=== PATIENT | female | born 1960 | race Caucasian/White ===

== ENCOUNTER → 2018-09-04 10:23 | Outpatient (CLI) | payer BC, SELFPAY ==
--- NOTE | 2018-09-04 10:28 | XR_ITS ---
XR finger RT min 2V CLINICAL INDICATION: Pain ITS.REASON: ARTHROPATHY OF HAND ORDERING PHYSICIAN: Harshil Lindquist MD PATIENT AGE: 58 years Comparison: None FINDINGS: There is a small calcific density along the dorsal aspect of the DIP joint which could represent an old avulsion injury. No acute fracture or dislocation. No lytic or blastic change. No significant arthritic change. IMPRESSION: Suspect old avulsion fracture at the dorsal aspect of the DIP of the second digit otherwise negative
--- NOTE | 2018-09-04 10:28 | XR_ITS ---
XR hip RT 2-3V w/pelvis HISTORY: ITS.REASON: RT HIP PAIN ORDERING PHYSICIAN: Harshil Lindquist MD PATIENT AGE: 58 years COMPARISON: None FINDINGS: There are mild osteoarthritic changes of the right hip. No fracture or dislocation. No lytic or blastic age. IMPRESSION: Mild osteoarthritis of the right hip
== END ==
PROVIDERS: PCP Family Medicine; Visit Provider Family Medicine
DX: M25.551 Pain in right hip (principal); M19.041 Primary osteoarthritis, right hand
CPT/HCPCS: 73140; 73502

== ENCOUNTER → 2018-09-08 09:55 | Outpatient (CLI) | payer BC, SELFPAY ==
--- NOTE | 2018-09-08 10:20 | CA_ITS ---
PROCEDURE: 2-D M-mode and color Doppler study INDICATIONS FOR THE TEST: Chest pain COPD Heart Murmur Tobacco Smoking Palpitations Fatigue Syncope Edema HypertensionXDiabetes Mellitus Rheumatic Fever SOB ABRAHAM Obesity Hyperlipidemia Family History HD Additional History MV REPAIR,RING,CM,ASD REPAIR PATIENT INFORMATION HEIGHT: 70 WEIGHT:156 GENDER: Female B/P:117/72 2-D/M-MODE INTERPRETATION: 2-D MEASUREMENTS OBSERVED VALUES IN CMS Right Ventricular Dimension (RVDd) 2.8 Interventricular Septum (Thickness)(IVsd) .7 Left Ventricular Internal Dimensions(LVIDd) 4.9 Left Ventricular Posterior Wall (Thickness)(LVPWd) .8 Aortic Root 3.3 Aortic Cusp Separation 2.1 Left Atrial Dimensions (LAD) 2.9 2D 1. Left atrium is normal size, left ventricle is normal size, there is no concentric left ventricular hypertrophy, visually estimated ejection fraction approximately 50% with no regional wall motion abnormality. 2. The right atrium and right ventricle are normal size and contractility. 3. The aortic valve is minimally thickened and fibrosed. 4. 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 5. The tricuspid valve is grossly normal. 6. The pulmonic valve is poorly visualized. 7. No significant pericardial effusion noted. DOPPLER INTERROGATION: Doppler interrogation of the aortic, mitral and tricuspid valvular presence of mild tricuspid regurgitation, tricuspid regurgitation jet velocity is inadequate for calculation of the right ventricular systolic pressure, diastolic parameters are within normal range. CONCLUSION: 1. Normal left ventricular size, preserved left ventricular systolic function, visually estimated ejection fraction of 50% with no regional wall motion abnormality, diastolic parameters are within normal range. 2. Normal functioning mitral valve ring without significant mitral inflow obstruction or mitral regurgitation 3. No significant pericardial effusion noted.
== END ==
PROVIDERS: PCP Family Medicine; Visit Provider Family Medicine
DX: Z98.890 Other specified postprocedural states (principal)
CPT/HCPCS: 93306

== ENCOUNTER → 2018-10-31 07:46 | Outpatient (CLI) | payer BC, SELFPAY ==
--- NOTE | 2018-10-31 07:48 | US_ITS ---
US transvaginal HISTORY: Pelvic pain, postmenopausal ITS.REASON: US T/V- Pelvic, Abdominal lower back pain ORDERING PHYSICIAN: Lucio Shelley MD PATIENT AGE: 58 years Comparison: None FINDINGS: UTERUS: The uterus measures 6 x 3 x 4 cm. Combined endometrial thickness is 3 mm. The uterus is anteverted. No uterine mass. No endometrial mass or thickening. The ovaries are difficult to visualize. Left ovary is 2 x 1.4 cm. The right ovary is 2.9 x 1.2 cm. No adnexal mass. No cul-de-sac fluid. IMPRESSION: Unremarkable pelvic ultrasound
== END ==
PROVIDERS: PCP Family Medicine; Visit Provider Nurse Practitioner Obstetrics & Gynecology
DX: M54.5 Low back pain (principal); R10.2 Pelvic and perineal pain; R10.9 Unspecified abdominal pain
CPT/HCPCS: 76830

== ENCOUNTER → 2018-12-08 10:42 | Outpatient (CLI) | payer BC, SELFPAY ==
--- NOTE | 2018-12-08 10:46 | XR_ITS ---
XR DEXA axial skeleton HISTORY: ITS.REASON: OSTEOPENIA ORDERING PHYSICIAN: Harshil Lindquist MD PATIENT AGE: 58 years COMPARISON: None FINDINGS: The BMD measured at the Left femoral neck is 1.032 g/cm squared with a T score of 0. This is considered Normal according to the World Health Organization criteria. Fracture risk is Low. L1 L4 density has a T score 2.3 IMPRESSION: Normal bone density. Low fracture risk. Recommend follow-up exam in November 2020
== END ==
PROVIDERS: PCP Family Medicine; Visit Provider Family Medicine
DX: M85.89 Other specified disorders of bone density and structure, multiple sites (principal)
CPT/HCPCS: 77080

== ENCOUNTER → 2021-06-14 16:49 | Outpatient (CLI) | payer BC, SELFPAY ==
--- NOTE | 2021-06-14 16:53 | MM_ITS ---
PROCEDURE INFORMATION: Exam: Screening 3D Mammography Exam date and time: 06/14/2021 4:53 PM Age: 60 years old Clinical indication: screening mammogram TECHNIQUE: Imaging protocol: Screening tomosynthesis and 2D mammography including computer-aided detection (CAD) when performed. COMPARISON: [facility] DIGITAL SCREEN BILATERAL 04/15/2019 3:50 PM FINDINGS: MAMMOGRAPHY: Breast composition: There are scattered areas of fibroglandular density. Mass: None. Architectural distortion: No new or suspicious architectural distortion. Calcifications: No new or suspicious calcifications are present Asymmetric density: No new or suspicious asymmetric density is present Skin thickening: None. Axillary adenopathy: None. IMPRESSION: No mammographic evidence of malignancy. Recommend annual screening mammography unless otherwise clinically indicated. ASSESSMENT: BI-RADS category 1: Negative
== END ==
PROVIDERS: PCP Family Medicine; Visit Provider Family Medicine
DX: Z12.31 Encounter for screening mammogram for malignant neoplasm of breast (principal)
CPT/HCPCS: 77063; 77067

== ENCOUNTER → 2022-08-17 15:22 | Outpatient (CLI) | payer BC, SELFPAY ==
--- NOTE | 2022-08-17 15:22 | MM_ITS ---
PROCEDURE INFORMATION: Exam: MG Bilateral Screening 3D Mammography Exam date and time: 08/17/2022 3:23 PM Age: 61 years old Clinical indication: Screening mammogram TECHNIQUE: Imaging protocol: Bilateral Screening tomosynthesis and 2D mammography including computer-aided detection (CAD) when performed. COMPARISON: 1. MG MM DIG SCREENING MAMM BI W/CAD 06/14/2021 4:51 PM 2. MG [facility] CHEY DIGITAL SCREEN BILATERAL 04/15/2019 3:50 PM 3. MG [facility] DIGITAL MAMM-SCREEN BILATERAL 06/10/2012 4:23 PM 4. MG [facility] DIGITAL MAMM-SCREEN BILATERAL 03/29/2011 3:42 PM FINDINGS: MAMMOGRAPHY: Breast composition: There are scattered areas of fibroglandular density. Mass: None. Architectural distortion: No new or suspicious architectural distortion. Calcifications: Stable benign-appearing calcifications are present. No new or suspicious cluster of microcalcifications have developed. Asymmetric density: No new or suspicious asymmetric density is present Skin thickening: None. Axillary adenopathy: None. IMPRESSION: No mammographic evidence of malignancy. Recommend annual screening mammography unless otherwise clinically indicated. ASSESSMENT: BI-RADS category 2: Benign
== END ==
PROVIDERS: PCP Family Medicine; Visit Provider Nurse Practitioner Obstetrics & Gynecology
DX: Z12.31 Encounter for screening mammogram for malignant neoplasm of breast (principal)
CPT/HCPCS: 77063; 77067

== ENCOUNTER → 2022-11-16 07:20 | Outpatient (CLI) | payer BC, SELFPAY ==
[2022-11-16 09:10] LABS: Chloride 105 mmol/L (98-107); Potassium 4.4 mmoL/L (3.5-5.1); Sodium 141 mmol/L (136-145)
[2022-11-16 09:12] LABS: Blood Urea Nitrogen 21 mg/dl (7-17); Estimated Glomerular Filt Rate 56 ml/min (>60); GFR (African American) 68 ML/MIN (>60)
[2022-11-16 09:13] LABS: Alanine Aminotransferase 14 U/L (12-78); Albumin Level 4.2 g/dl (3.5-5.0); Albumin/Globulin Ratio 1.4 (1.1-1.8); Alkaline Phosphatase 80 U/L (38-126); Anion Gap 9.4 mEq/L (5-15); Aspartate Amino Transferase 28 U/L (14-36); Bilirubin,Total 0.2 mg/dl (0.2-1.3); Calcium 8.7 mg/dl (8.4-10.2); Carbon Dioxide 31 mmol/L (22.0-30.0); Cholesterol 197 mg/dl (140-200); Globulin 2.9 g/dL (1.3-3.2); Glucose 100 mg/dl (74-100); Total Protein,Serum 7.1 g/dl (6.3-8.2); Triglycerides 74 mg/dl (30-150); VLDL Cholesterol 15 mg/dL (0-40)
[2022-11-16 09:24] LABS: Direct LDL Cholesterol 107.17 mg/dL (100-129)
[2022-11-16 12:21] LABS: Chol/HDL Ratio 4.2 (1-3.5); HDL Cholesterol 47 mg/dl (40-60)
== END ==
PROVIDERS: PCP Family Medicine; Visit Provider Family Medicine
DX: Z79.899 Other long term (current) drug therapy (principal)
CPT/HCPCS: 36415; 80053; 80061

== ENCOUNTER → 2023-02-08 09:00 | Outpatient (CLI) | payer BC, SELFPAY ==
--- NOTE | 2023-02-08 09:08 | XR_ITS ---
FINAL REPORT TECHNIQUE: Bone mineral density was calculated of the lumbar spine and hip. CLINICAL HISTORY: . osteopenia FINDINGS: DEXA BONE DENSITY AXIAL SKELETON Using L1-4, the bone mineral density of the spine is 1.265 g/cm2, corresponding to T-score of 2.0 with a Z-score 3.6. Using the left hip, the bone mineral density of the total hip is 0.879 g/cm2, corresponding to a T-score of -0.5 with a Z-score of 0.6. Using the right hip, the bone mineral density of the total hip is 0.960 g/cm2, corresponding to a T-score of 0.2 with a Z-score of 1.2. NOTE: T-score: Standard deviation compared with peak bone mass of young adult mean. *Following the recommendations of the International Society of Bone densitometry, classification of hip BMD is based on the lower of two T-scores; total hip or femoral neck. IMPRESSION: Normal bone mineral density of the lumbar spine and hips. Reviewed, Interpreted and Dictated by Simi Evans MD Transcribed by Lorenza Kou Authenticated and [facility]
== END ==
PROVIDERS: PCP Family Medicine; Visit Provider Family Medicine
DX: Z13.820 Encounter for screening for osteoporosis (principal); Z78.0 Asymptomatic menopausal state
CPT/HCPCS: 77080

== ENCOUNTER → 2023-09-06 15:11 | Outpatient (CLI) | payer BC, SELFPAY ==
--- NOTE | 2023-09-06 15:15 | MM_ITS ---
PROCEDURE INFORMATION: Exam: MG Bilateral Screening 3D Mammography Exam date and time: 09/06/2023 3:07 PM Age: 63 years old Clinical indication: Screening examination; No personal or family history of breast cancer TECHNIQUE: Imaging protocol: Bilateral Screening tomosynthesis and 2D mammography including computer-aided detection (CAD) when performed. COMPARISON: 1. MG MM DIG SCREENING MAMM BI W/CAD 08/17/2022 3:23 PM 2. MG MM DIG SCREENING MAMM BI W/CAD 06/14/2021 4:51 PM FINDINGS: MAMMOGRAPHY: Breast composition: There are scattered areas of fibroglandular density. Mass: None. Architectural distortion: None. Calcifications: No suspicious calcifications. Asymmetric density: None. Skin thickening: None. Axillary adenopathy: None. IMPRESSION: No mammographic evidence of malignancy. Annual screening is recommended unless otherwise clinically indicated. ASSESSMENT: BI-RADS Category 1: Negative
== END ==
PROVIDERS: PCP Family Medicine; Visit Provider Family Medicine
DX: Z12.31 Encounter for screening mammogram for malignant neoplasm of breast (principal)
CPT/HCPCS: 77063; 77067

== ENCOUNTER 2024-09-18 14:14 | Outpatient (CLI) | payer BC, SELFPAY ==
--- NOTE | 2024-09-18 14:20 | MM_ITS ---
PROCEDURE INFORMATION: Exam: MG Bilateral Screening 3D Mammography Exam date and time: 09/18/2024 2:07 PM Age: 64 years old Clinical indication: Screening. No family history of breast cancer. TECHNIQUE: Imaging protocol: Bilateral Screening tomosynthesis and 2D mammography including computer-aided detection (CAD) when performed. COMPARISON: MG MM DIG SCREENING MAMM BI W/CAD 08/17/2022 3:23 PM FINDINGS: MAMMOGRAPHY: Breast composition: There are scattered areas of fibroglandular density. Mass: None. Architectural distortion: None. Calcifications: No suspicious calcifications. Asymmetric density: None. Skin thickening: None. Axillary adenopathy: None. IMPRESSION: No mammographic evidence of malignancy. Annual screening is recommended unless otherwise clinically indicated. ASSESSMENT: BI-RADS Category 1: Negative.
== END 2024-09-18 23:59 | disposition home or self-care (01) ==
LOC: RAD 14:15
PROVIDERS: PCP Family Medicine; Visit Provider Family Medicine
DX: C50.919 Malignant neoplasm of unspecified site of unspecified female breast (principal)
CPT/HCPCS: 77063; 77067

== ENCOUNTER 2025-02-22 08:28 | Emergency (ER) | payer BC, SELFPAY ==
--- NOTE | 2025-02-22 08:41 | XR_ITS ---
FINAL REPORT CLINICAL HISTORY: fall onto R knee, large laceration FINDINGS: RIGHT KNEE Three views demonstrate no acute fracture or dislocation. The joint spaces appear normal. No acute soft tissue abnormality is seen. IMPRESSION: No acute process. Reviewed, Interpreted and Dictated by Valdez Maguire MD Transcribed by Blossom Millan Authenticated and [facility]
--- NOTE | 2025-02-22 08:42 | HMH.EDGENADL ---
Discharge Plan Disposition Patient Disposition: Home, Self-Care Condition: Good Prescriptions Prescriptions: New cephalexin 500 mg capsule 500 mg PO Q8H 7 Days Qty: 21 0RF No Action folic acid 400 mcg tablet 400 mcg PO QDAY aspirin [Adult Low Dose Aspirin] 81 mg tablet,delayed release (DR/EC) 81 mg PO QDAY cholecalciferol (vitamin D3) 3,000 unit tablet 3,000 unit PO ONCE Adult 50 Plus Probiotic 4 billion cell capsule 4,000 mmu cells PO DAILY Rx Instructions: administer with a meal vitamin B complex [Vitamins B Complex] Capsule 1 cap PO DAILY calcium carbonate 500 mg calcium (1,250 mg) tablet 500 mg PO DAILY metoprolol tartrate 25 mg tablet See Rx Instructions .ROUTE .COMPLEX Qty: 60 0RF Dose Instruction: Take 1 tablet by mouth twice daily Rx Instructions: Take 1 tablet by mouth twice daily sertraline 100 mg tablet See Rx Instructions .ROUTE .COMPLEX Qty: 90 0RF Dose Instruction: Take 1 tablet by mouth once daily Rx Instructions: Take 1 tablet by mouth once daily Referrals Follow up/Referrals: Harshil Lindquist MD [Primary Care Provider] - See instructions Activity Restrictions/Add. Instructions Additional Instructions/Restrictions: You were evaluated in the emergency department today. Please keep your wound clean and dry. It is okay if it gets wet in the shower, just do not submerge under any water such as in the bathtub. Keep a clean dressing applied to your wound to help protect it and prevent infection. Apply antibiotic ointment that was provided to you twice daily. supervisor [employer] your prescription for antibiotics and take the full course as prescribed to help prevent infection. You had 10 nonabsorbable sutures placed which will need to be removed in approximately 10 to 14 days. Follow-up closely with either primary care, urgent treatment, or here in the emergency department for wound recheck. Take Tylenol and ibuprofen as needed for pain. Return to the emergency department right away for new or worsening symptoms or should you become concerned for wound infection. Clinical Impressions Clinical Impression: Laceration of knee, right, complicated Stand Alone Forms Stand Alone Forms: Work/School Release Instructions Patient Instructions: DI for Laceration Repair, DI for Knee Pain Print Language Print Language: British Discharge ED Provider: Marisa Pedroza General Adult HPI General Chief complaint: Wound/Laceration Stated complaint: AO-Fall 529, Laceration R knee Time Seen by Provider: 02/22/25 08:32 History of Present Illness HPI narrative: This patient is a 64-year-old female who denies significant past medical history presenting to the emergency department for evaluation with concern for right knee injury. Patient states that she tripped and fell in her driveway, which is uneven, landing on her right knee and her right wrist. Her right wrist is fine with the exception of a superficial abrasion, but she has a large laceration to her right knee. She did not hit her head or lose consciousness, no other injuries or complaints noted. She does not take blood thinners or aspirin. She went to [facility] to get her wound repaired, but they told her it was too deep and sent her to the ED for evaluation. She is unsure when her last tetanus shot was. Related Data Home Medications ?Medication ?Instructions ?Recorded ?Confirmed folic acid 400 mcg tablet 400 mcg PO QDAY 11/13/17 02/22/25 aspirin 81 mg tablet,delayed 81 mg PO QDAY 11/14/17 02/22/25 release (Adult Low Dose Aspirin) cholecalciferol (vitamin D3) 75 3,000 unit PO ONCE 05/22/18 02/22/25 mcg (3,000 unit) tablet vitamin B complex (Vitamins B 1 cap PO DAILY 09/29/19 02/22/25 Complex capsule) lactobacillus combination no.9 4 4,000 mmu cells PO DAILY 01/10/22 02/22/25 billion cell capsule (Adult 50 Plus Probiotic) calcium carbonate 500 mg PO DAILY 01/14/23 02/22/25 Previous Rx's ?Medication ?Instructions ?Recorded metoprolol tartrate 25 mg tablet See Rx Instructions .Route 07/22/23 .COMPLEX #60 tabs sertraline 100 mg tablet See Rx Instructions .Route 10/14/23 .COMPLEX #90 tabs cephalexin 500 mg capsule 500 mg PO Q8H 7 days #21 caps 02/22/25 Allergies Allergy/AdvReac Type Severity Reaction Status Date / Time No Known Allergies Allergy Verified 02/22/25 08:[address] [facility] Disclaimer: The information contained in this section may have been updated after the patient was seen, as this information can be updated by other users. Medical History Marital conflict Anxiety about health Surgical History Hx of tubal ligation History of open heart surgery Family History Other Cancer Social History Smoking Status: Never smoker alcohol intake: never substance use type: denies use current occupational status: employed Travel in the last 8 weeks: None number of children: 4 Have you lived/traveled outside US in past 30 days?: No Contact w/someone who lives/traveled outside US past 30 days?: No Exposure to someone with infectious disease in past 14 days?: No Do you have a fever (greater than 100.4 F or 38 C)?: No Have you tested positive for COVID-19: No Exposed to someone with COVID-19 in past 14 days?: No Do you have a sore throat?: No Do you have a cough?: No Do you have any weakness?: No Do you have any diarrhea?: No Are you experiencing any unusual bleeding?: No Do you have any muscle aches/pain?: No Do you have any abdominal pain?: No Are you experiencing loss of taste or smell?: No Other Medical History Have you received the Flu Vaccine for this season: No Have you received the Pneumonia Vaccine: No ROS Obtained: Yes All systems reviewed & no additional complaints except as documented Physical Exam General General appearance: alert and in no apparent distress Head Head exam: atraumatic and normocephalic Eye Eye exam: Present normal appearance, PERRL and EOMI ENT ENT exam: Present normal exam, normal oropharynx, mucous membranes moist and normal external ear exam Neck Neck exam: Present normal inspection, full ROM and trachea midline; Absent tenderness Chest Chest inspection: Present normal inspection and symmetric chest wall rise; Absent tenderness Respiratory Respiratory exam: Present normal lung sounds bilaterally; Absent respiratory distress, wheezes, stridor or accessory muscle use Cardiovascular Cardiovascular exam: Present regular rate and normal rhythm Abdominal Exam Abdominal exam: Present soft; Absent distention, tenderness or guarding Extremities Exam Extremities exam: Present full ROM, normal capillary refill and other (Superficial abrasion to the ulnar aspect of the right wrist. Compartment soft. Neurovascularly intact distally. Large flap laceration to the right knee without significant bony tenderness to palpation.); Absent tenderness or edema Expanded Lower Extremity Exam Right: Leg image: 1. Large stellate flap laceration without deep extension into the joint on further assessment. Patellar tendon intact. Compartment soft. Neurovascular intact distally. 2. Back Exam Back exam: Present normal inspection and full ROM; Absent tenderness Neurological Exam Neurological exam: Present alert, oriented X3, CN II-XII intact and normal gait; Absent motor sensory deficit Psychiatric Psychiatric exam: Present normal affect and normal mood Skin Skin exam: Present warm and dry Medical Decision Making Medical Records Medical records reviewed: Yes I reviewed the patient's medical records. Screening: Per USPSTF and CDC recommendations, given the prevalence of disease in our region, it is our hospital?s policy to screen for HIV and viral Hepatitis for all patients aged 18 and over and those with ongoing risk factors. Deven Inquiry Pt receiving controlled substance: No Vital Signs: 02/22/25 08:45 02/22/25 09:02 Temperature 99.5 F Temperature Source Oral Pulse Rate 70 Pulse Rate [Left Radial] 71 Respiratory Rate 16 Blood Pressure 128/101 H Blood Pressure [Right Arm] 137/65 Blood Pressure Mean 110 Blood Pressure Mean [Right Arm] 89 Blood Pressure Source [Right Arm] Automatic Cuff Blood Pressure Position [Right Arm] Sitting 02 Sat by Pulse Oximetry 98 97 Oxygen Delivery Method Room Air Lab Data Lab results reviewed: Yes I reviewed the patient's lab results. Orders (Tests/Meds): ED MEDICATIONS Discontinued Medications Generic Name Dose Route Start Last Admin Trade Name Daviq PRN Reason Stop Dose Admin Acetaminophen 1,000 mg 02/22/25 08:40 02/22/25 09:12 Acetaminophen 500mg Tab PO 02/22/25 08:41 Not Given ONCE ONE Bacitracin 1 gm 02/22/25 09:23 02/22/25 09:24 Bacitracin Zinc Oint 30gm Tube TP 02/22/25 09:24 1 gm ONCE ONE Administration Ibuprofen 800 mg 02/22/25 08:40 02/22/25 09:12 Ibuprofen 400 Mg Tablet PO 02/22/25 08:41 Not Given ONCE ONE Lidocaine/Epinephrine 20 ml 02/22/25 08:40 02/22/25 09:01 Lidocaine 1% W/Epi 1:100,000 20ml Vial IJ 02/22/25 08:41 20 ml ONCE ONE Administration Tetanus/Reduced Diphtheria/Acell Pertussis 0.5 ml 02/22/25 08:40 02/22/25 09:02 Tet/Diphth/Pert-Adult 0.5ml Syringe IM 02/22/25 08:41 0.5 ml .ONCE ONE Administration ORDERS Category Date Time Status Knee XR right 3 views [XR knee RT 3V] Stat Exams 02/22/25 08:41 Completed Medical Decision Narrative: In summary, this patient is a 64-year-old female presenting to the Emergency Department for evaluation of mechanical ground-level fall with large right knee laceration. Differential diagnoses considered include but are not limited to laceration, abrasion, open joint, fracture, tendon injury, neurovascular injury. Ruling out the most morbid conditions drove assessment. On exam, the patient has a large stellate flap laceration to the anterior aleman just below the knee joint without extension into the knee on probing. Wound is hemostatic. Patellar tendon is intact. No significant joint effusion or bony tenderness noted. Workup included x-ray of the right knee. The patient was given Tdap booster as well as oral Tylenol and ibuprofen. She consents to laceration repair. I independently interpreted x-ray prior to the radiologist read and noted no appreciable foreign body, no fracture. Please see their read for final interpretation. After informed consent was obtained, patient's laceration was repaired. This was a complex repair requiring wound margin revision, deep sutures, and skin repair. Patient tolerated this well with no complications. Please see procedure note for further documentation. Bacitracin was applied as well as a sterile nonadherent dressing. At this time, patient was deemed to be appropriate for discharge home with instructions for wound care and strict return precautions. I also provided a short course of Keflex given complex wound to help prevent any sort of skin infection. Patient was discharged after all questions were answered. Procedures Risk/Benefits of Procedure(s) Were Explained: Yes Laceration Laceration 1: Site: lower extremity Side (If applicable): right Size (cm): 5 Description: stellate, flap and irregular Depth: involves subcutaneous layer Local Anesthetic: lidocaine 1% and with epi Amount of anesthesia used (mL): 8 Pre-repair: wound explored, irrigated extensively and wound margins revised Skin layer closed with: nylon Size (cm): 3-0 Number of sutures: 10 Technique: simple, interrupted Subcutaneous layer closed with: chromic gut Size: 4-0 Number of sutures: 2 Technique: simple, interrupted Critical Care Critical Care Time Critical Care Time: No
[2025-02-22 08:45] VITALS: BP 137/65; PULSE 71; RESP 16; TEMP 37.5; O2SAT 98; BMI 24.5
--- NOTE | 2025-02-22 08:56 | PC.NURSE ---
xr at bedside
[2025-02-22] MEDS: LIDOCAINE 1% W/EPI 1:100,000 20ML VIAL 20 ML IJ (09:01)
[2025-02-22 09:02] VITALS: BP 128/101; PULSE 70; O2SAT 97
[2025-02-22] MEDS: TET/DIPHTH/PERT-ADULT 0.5ML SYRINGE 0.5 ML IM (09:02)
[2025-02-22] MEDS: BACITRACIN ZINC OINT 30GM TUBE TP (09:24)
[2025-02-22 09:56] VITALS: BP 127/69; PULSE 70; RESP 16; TEMP 36.6; O2SAT 96
== END 2025-02-22 09:57 | disposition home or self-care (01) ==
PROVIDERS: Emergency Provider Emergency Medicine; PCP Family Medicine
DX: S81.011A Laceration without foreign body, right knee, initial encounter (principal); W01.198A Fall on same level from slipping, tripping and stumbling with subsequent striking against other object, initial encounter; Z23 Encounter for immunization
CPT/HCPCS: 12032; 90471; 99283; 73562; 90715

== ENCOUNTER 2025-07-30 16:36 | Outpatient (CLI) | payer BC, SELFPAY ==
--- OUTSIDE RECORDS SUMMARY | 2025-07-30 16:39 | XMS_ITS | Clinical Summary ---
Author Organization Healthcare Address [address] [place] [address] Care Team Providers Care Bereavement Coordinator Name Role Phone Unavailable Primary Care Provider Unavailabl e Family History Medical History Relation Name Comments Conversions - Other Father CAD (cor onary artery disease), [place] coronary artery Diabetes Father Stroke Mother Relation Name Status Comments Father Mother Social History Tobacco Use Types Packs/Day Years Used Date Smoking Tobacco: Never Alcohol Use Standard Drinks/Week Comments No 0 (1 standard drink = 0.6 oz pur e alcohol) Comments Unknown Sex and Gender Information Value Date Recorded Sex Assigned at Not on file Legal Sex Female 6:34 PM EDT Gender Identity Not on file Sexual Orientation Not on file Last Filed Vital Signs Vital Sign Reading Time Taken Comments Blood Pressure - - Pulse - - Temperature - - Respiratory Rate - - Oxygen Saturation - - Inhaled Oxygen Concentration - - Weight 72.8 kg (160 lb 9.3 oz) 08/29/2017 1:31 P M EDT Height 177.8 cm (5' 10 ) 08/29/2017 1:31 PM EDT Body Mass Index 23.04 08/29/2017 1:31 PM EDT Plan of Treatment Health Maintenance Due Date Last Done Comments [facility]-Depression Screening 1960 [facility]-/Child/Adol SDOH Screenings 1960 [facility]- SDOH Screenings 1978 [facility]-Adult SDOH Screenings 1978 [facility]-DTaP,Tdap,and Td Vaccine s (1 - Tdap) 1979 [facility]-Pap Smear 1981 [facility]-Cervical Cancer Screening 1990 [facility]-HPV/Cotest 1990 CT Colonography 2005 Colonoscopy 2005 FIT-DNA 2005 FIT 2005 FOBT 2005 Sigmoidoscopy 2005 [facility]-Colorectal Cancer Screening 2005 [facility]-Pneumococcal Vaccine: 50 + Years (1 of 1 - PCV) 2010 [facility]-Zoster Vaccines (1 of 2) 2010 [id number] Vaccine ( - 20 24- season) 2025 [facility]-Influenza Vaccine (#1) 2025 [facility]-RSV Vaccine: 60+ Years o r (1 - 1-dose 75+ series) 2035 HPV Vaccines Aged Out No longer eligi ble based on patient's age to complete this topic [facility]-HIB Vaccines Aged Out No longer e ligible based on patient's age to complete this topic [facility]-Hepatitis A Vaccines Aged Out No longer eligible based on patient's age to complete this topic [facility]-IPV Vaccines Aged Out No longer e ligible based on patient's age to complete this topic [facility]-Rotavirus Vaccines Aged Out No lo nger eligible based on patient's age to complete this topic
--- OUTSIDE RECORDS SUMMARY | 2025-07-30 16:39 | XMS_ITS | Clinical Summary ---
Author Organization [facility] Address [address], [address] [place] [address] Care Team Providers Care Wildlife Technician Name Role Phone System, Referring Not In Primary Care Provider U navailable Social History Tobacco Use Types Packs/Day Years Used Date Smoking Tobacco: Never Assessed Comments Unknown Sex and Gender Information Value Date Recorded Sex Assigned at Not on file Legal Sex Female 12:59 PM EDT Gender Identity Not on file Sexual Orientation Not on file Plan of Treatment Not on file [facility] [address] [place] [employer] Care Teams Wildlife Technician Relationship Specialty Start Date End Date System, Referring Not In PCP - General 02/09/14
--- NOTE | 2025-07-30 16:40 | XR_ITS ---
FINAL REPORT CLINICAL HISTORY: RT HIP PAIN COMPARISON: None FINDINGS: RIGHT HIP Two views of the right hip with an AP view of the pelvis demonstrate no acute fracture or dislocation. There is moderate to severe osteoarthritis. Sclerosis of the femoral head may simply be due to degenerative change but underlying AVN is not excluded. MRI may be of benefit. IMPRESSION: Advanced degenerative change with possible underlying AVN. Consider MRI. Reviewed, Interpreted and Dictated by Harshil Fink MD Transcribed by Mary Carmen Escalante Authenticated and [facility]
== END 2025-07-30 23:59 | disposition home or self-care (01) ==
LOC: RAD 16:37
PROVIDERS: PCP Family Medicine; Visit Provider Family Medicine
DX: M16.11 Unilateral primary osteoarthritis, right hip
CPT/HCPCS: 73502

== ENCOUNTER 2025-08-30 15:04 | Outpatient (CLI) | payer BC, SELFPAY ==
--- NOTE | 2025-08-30 15:15 | CA_ITS ---
APPROVED REPORT EXAM: Comprehensive 2D, Doppler, and color-flow Echocardiogram Medical Examiner: Nasreen Boyd RVT Ht: 5 ft 10 in Wt: 161lbs BSA: 1.90 BP: 103/64 mmHg Indications: PRE-OP,MITRAL VALVE RING 2D Dimensions LA Volume 24.10 mL LA Volume Index 12.62 mL/m2 (M/F) 16-34 M-Mode Dimensions RVDd 2.43 cm (0.9-2.6) LA Diam 3.01 cm (1.9-4.0) LVDd 3.95 cm (3.5-5.7) LVDs 2.85 cm (3.5-5.7) IVSd 0.95 cm (0.6-1.1) PWd 0.80 cm (0.6-1.1) EF (Teich) 54.50% FS 27.80% EDV (Teich) 67.90 mL TAPSE 1.94 (<1.7) ESV (Teich) 30.90 mL LV Diastology E Decel Time 120 (160-240 msec) E/A Ratio 1.4 Aortic Valve MAGGY Index 1.44 cm2/m2 AoV Peak Jonathan. 89.0 (50-130 cm/s) AO Peak GR. 3.20 mmHg AO Mean GR. 2.10 (<5 mmHg) AO VTI 16.7 (18-25 cm) MAGGY (VTI) 2.80 (2.5-4.5 cm2) Mitral Valve MV E Max Jonathan. 103.0 (40-130 cm/s) MV A Velocity 76.0 (40-130 cm/s) E/A Ratio 1.34 MV Mean Gr. 2.30 (<2mmHg) MV PHT 35.0 ms Pulmonary Valve PV Peak Velocity 59.0 (50-150 cm/s) Left Ventricle The left ventricle is normal size. Left ventricular systolic function is low normal. There is increased left ventricular wall thickness. There is moderate hypokinesis of the septal and inferior septal LV figueroa. The left ventricular diastolic function is indeterminate. LVEF is 50% Right Ventricle The right ventricle is normal size. The right ventricular systolic function is normal. Atria The left atrium size is normal. The right atrium size is normal. There is no color Doppler evidence of interatrial shunt. Aortic Valve The aortic valve is mildly thickened. There is no hemodynamically significant aortic valvular stenosis. Mild aortic regurgitation is present. Mitral Valve s/p mitral valve annuloplasty ring. No evidence of mitral valve stenosis. Mean MV gradient is 3 mmHg (HR 65 bpm). Trace mitral regurgitation is present. Tricuspid Valve The tricuspid valve leaflets are thin and pliable. Trace tricuspid regurgitation. There is insufficient TR jet to estimate RVSP. Pulmonic Valve The pulmonary valve is grossly normal in structure. Mild pulmonic valve regurgitation is present. Great Vessels The aortic root is normal in size. IVC is normal in size and collapses >50% with inspiration. Pericardium There is no pericardial effusion. Other Information Study Quality: Fair Conclusion Low-normal LV systolic function (LVEF 50%). Moderate hypokinesis of the septal and inferior septal LV figueroa. s/p mitral valve annuloplasty ring. No significant MR or MS. Mild AI, mild PI. Electronically signed by : Magnolia Bower MD 09/01/2025 11:05:24
== END 2025-08-30 23:59 | disposition home or self-care (01) ==
LOC: RT 15:05
PROVIDERS: PCP Family Medicine; Visit Provider Nurse Practitioner Family
DX: Z01.810 Encounter for preprocedural cardiovascular examination (principal); I08.8 Other rheumatic multiple valve diseases; I42.9 Cardiomyopathy, unspecified; R93.1 Abnormal findings on diagnostic imaging of heart and coronary circulation; R94.31 Abnormal electrocardiogram [ECG] [EKG]; Z98.890 Other specified postprocedural states
CPT/HCPCS: 93306

== ENCOUNTER 2025-09-20 15:49 | Outpatient (CLI) | payer BC, SELFPAY ==
--- NOTE | 2025-09-20 15:51 | MM_ITS ---
PROCEDURE INFORMATION: Exam: MG Bilateral Screening 3D Mammography Exam date and time: 09/20/2025 3:54 PM Age: 65 years old Clinical indication: Screening examination TECHNIQUE: Imaging protocol: Bilateral Screening tomosynthesis and 2D mammography including computer-aided detection (CAD) when performed. COMPARISON: 1. MG MM DIG SCREENING MAMM BI W/CAD 09/18/2024 2:07 PM 2. MG MM DIG SCREENING MAMM BI W/CAD 09/06/2023 3:07 PM FINDINGS: MAMMOGRAPHY: Breast composition: There are scattered areas of fibroglandular density. Mass: No suspicious masses. Architectural distortion: None. Calcifications: No suspicious calcifications. Asymmetric density: None. Skin thickening: None. Axillary adenopathy: None. IMPRESSION: No mammographic evidence of malignancy. Annual screening is recommended unless otherwise clinically indicated. ASSESSMENT: BI-RADS Category 1: Negative.
--- OUTSIDE RECORDS SUMMARY | 2025-09-20 15:52 | XMS_ITS | Clinical Summary ---
Author Organization Healthcare Address [address] [place] [address] Care Team Providers Care Branch Examiner Name Role Phone Unavailable Primary Care Provider Unavailabl e Family History Medical History Relation Name Comments Conversions - Other Father CAD (cor onary artery disease), [place] coronary artery Diabetes Father Stroke Mother Relation [...] Health Maintenance Due Date Last Done Comments [facility]-Bone Density Scan 1960 [facility]-Depression Screening 1960 [facility]-Infant/Child/Adol SDOH Screenings 1960 [facility]- SDOH Screenings 1978 [facility]-Adult SDOH Screenings 1978 [facility]-DTaP,Tdap,and Td Vaccine s (1 - Tdap) 1979 [facility]-Pap Smear 1981 [facility]-Cervical Cancer Screening 1990 [facility]-HPV/Cotest 1990 CT Colonography 2005 Colonoscopy 2005 FIT-DNA 2005 FIT 2005 FOBT 2005 Sigmoidoscopy 2005 [facility]-Colorectal Cancer Screening 2005 [facility]-Pneumococcal Vaccine: 50 + Years (1 of 1 - PCV) 2010 [facility]-Zoster Vaccines (1 of 2) 2010 [id number] Vaccine ( - 20 24- season) 2025 [...]
--- OUTSIDE RECORDS SUMMARY | 2025-09-20 15:52 | XMS_ITS | Clinical Summary ---
Author Organization [facility] Address [address], [address] [place] [address] Care Team Providers Care Supervisor Housecleaner Name Role Phone System, Referring Not In Primary Care Provider U navailable Social History Tobacco Use Types Packs/Day Years Used Date Smoking Tobacco: Never Assessed Comments Unknown Sex and Gender Information Value Date Recorded Sex Assigned at Not on file Legal Sex Female 12:59 PM EDT Gender Identity Not on file Sexual Orientation Not on file Plan of Treatment Not on file [facility] [id number] [place] [employer] Care Teams Supervisor Housecleaner Relationship Specialty Start Date End Date System, Referring Not In PCP - General 02/09/14
== END 2025-09-20 23:59 | disposition home or self-care (01) ==
LOC: RAD 15:49
PROVIDERS: PCP Family Medicine; Visit Provider Family Medicine
DX: Z12.31 Encounter for screening mammogram for malignant neoplasm of breast (principal); R92.323 Mammographic fibroglandular density, bilateral breasts
CPT/HCPCS: 77063; 77067